=== PATIENT | male | born 1955 | race African-American/Black ===

== ENCOUNTER 2021-04-06 09:25 | Emergency (ER) | payer OTHER ==
[2021-04-06 09:49] VITALS: BP 142/87; PULSE 95; TEMP 98; BMI 31.8
[2021-04-06] MEDS ORDERED: LACTULOSE 20 GM/30 ML UDC (FOR ORAL USE ONLY) PO ONE (11:20)
[2021-04-06] MEDS ORDERED: LACTULOSE 20 GM/30 ML UDC (FOR ORAL USE ONLY) ONE (11:25)
[2021-04-06] MEDS ORDERED: POLYETHYLENE GLYCOL (HEALTHYLAX) 3350 17 GM PACKET PO SCH (11:30)
[2021-04-06] MEDS ORDERED: SODIUM PHOSPHATE/NA BIPHOS 133 ML ENEMA PR ONE (13:04)
== END 2021-04-06 15:15 | disposition home or self-care (01) ==
LOC: JER 09:25
DX: K59.00 Constipation, unspecified (principal)
CPT/HCPCS: 74019-TC-FY; 99284-25

== ENCOUNTER 2023-01-26 16:18 | Emergency (ER) | payer OTHER ==
[2023-01-26 16:25] VITALS: RESP 18; BMI 31.5
[2023-01-26] MEDS ORDERED: SODIUM PHOSPHATE/NA BIPHOS 133 ML ENEMA PR ONE (17:04)
[2023-01-26] MEDS ORDERED: POLYETHYLENE GLYCOL (HEALTHYLAX) 3350 17 GM PACKET ONE (17:15)
[2023-01-26] MEDS ORDERED: POLYETHYLENE GLYCOL (HEALTHYLAX) 3350 17 GM PACKET PO ONE (17:15)
[2023-01-26 18:19] VITALS: BP 151/81; PULSE 88; TEMP 97.9
== END 2023-01-26 18:19 | disposition home or self-care (01) ==
LOC: JER 16:18
DX: K59.00 Constipation, unspecified (principal)
CPT/HCPCS: 74018-TC-FY; 99283-25